=== PATIENT | female | born 1945 | race Caucasian/White ===

== ENCOUNTER 2021-06-02 07:03 | Emergency (ER) | payer OTHER, MEDICARE ==
[2021-06-02 07:13] VITALS: BP 140/74; PULSE 64; TEMP 97.9; BMI 17.7
== END 2021-06-02 08:10 | disposition home or self-care (01) ==
LOC: FER 07:03
DX: S93.431A Sprain of tibiofibular ligament of right ankle, initial encounter (principal); S93.601A Unspecified sprain of right foot, initial encounter; X50.9XXA Other and unspecified overexertion or strenuous movements or postures, initial encounter
CPT/HCPCS: 73610-TC-RT-FY; 73630-TC-RT-FY; 99283-25